=== PATIENT | female | born 1945 | race Caucasian/White ===

== ENCOUNTER → 2017-12-31 | Outpatient (CLI) | payer OTHER, BC | END | disposition home or self-care (01) | DX: Z01.818 Encounter for other preprocedural examination (principal); M17.11 Unilateral primary osteoarthritis, right knee; R26.2 Difficulty in walking, not elsewhere classified; M25.561 Pain in right knee; M25.661 Stiffness of right knee, not elsewhere classified; M62.81 Muscle weakness (generalized); Z74.1 Need for assistance with personal care | CPT/HCPCS: 97161 GP; 97165 GO; 97530 GP; 97535 GO; G8978 GP; G8979 GP; G8980 GP; G8987 GO; G8988 GO; G8989 GO ==

== ENCOUNTER 2018-01-12 22:06 | Inpatient (IN) | payer BC, OTHER ==
[~2018-01-12] VITALS: Ht 160 cm; Wt 115.2 kg
[~2018-01-12 22:06] MED LIST: CALCIUM 500 MG1 EACH PO; COZAAR25 MG PO; DITROPAN XL10 MG PO; LO-DOSE ASPIRIN81 M2 PO; LOTRONEX1 MG PO; MACRODANTIN50 M1 PO; MAGNESIUM250 MG PO; PRILOSEC20 MG PO; TENORMIN100 MG PO; VITAMIN B122500 MCG PO; VITAMIN C100 MG PO; ZOCOR20 MG PO
[2018-01-13 11:52] VITALS: BP 133/100
[2018-01-13 16:57] LABS: HEMATOCRIT 37.5 % (36.0-46.0); HEMOGLOBIN 12.6 G/DL (11.9-15.5); MCH 32.3 PG (29.0-34.0); MCHC 33.6 G/DL (30.0-36.0); MCV 96.2 FL (83-99); PLATELET COUNT 252 K/uL (156-360); RBC DIS.WIDTH-CV 12.5 % (11.8-14.6); RBC DIS.WIDTH-SD 44.2 % (39-53)
[2018-01-13 20:36] VITALS: BP 180/84
[2018-01-14 00:13] VITALS: BP 176/78
[2018-01-14 03:46] VITALS: BP 167/77
[2018-01-14 06:42] LABS: HEMATOCRIT 33.7 % (36.0-46.0); HEMOGLOBIN 11.6 G/DL (11.9-15.5); MCV 94.4 FL (83-99)
[2018-01-14 07:30] LABS: CHLORIDE 101 MEQ/L (99-109); CREATININE 0.6 MG/DL (0.6-1.3); GFR ESTIMATE (CALCULATED) > 59 mL/min/; GLUCOSE 132 mg/dL (70-99); POTASSIUM 4.2 MEQ/L (3.7-5.4); SODIUM 136 MEQ/L (136-147); UREA NITROGEN (BUN) 11 mg/dL (9-23)
[2018-01-14] MEDS ORDERED: LOVENOX40 MG/0.4 SC (08:23)
[2018-01-14] MEDS ORDERED: OXYCODONE HCL5 MG PO (08:23)
[2018-01-14 08:32] VITALS: BP 164/72
[2018-01-14 16:02] VITALS: BP 159/70
[2018-01-15] VITALS: BP 178/77
[2018-01-15 06:20] LABS: HEMATOCRIT 30.9 % (36.0-46.0); HEMOGLOBIN 10.6 G/DL (11.9-15.5); MCV 93.1 FL (83-99)
[2018-01-15 07:43] VITALS: BP 178/72
[2018-01-15 08:59] VITALS: BP 106/60
== END 2018-01-15 15:07 | disposition home or self-care (01) | DRG 467 ==
LOC: CANRESERV 22:06 → ENRESERV 22:06 → CANRESERV 01-13 06:43 → ENRESERV 01-13 06:43 → 2SOUTH 01-13 10:41 → 3EAST 01-13 10:43 → 2SOUTH 01-13 10:43 → ENRESERV 01-13 16:50 → 3EAST 01-13 20:23
PROVIDERS: Orthopaedic Surgery
DX: T84.032A Mechanical loosening of internal right knee prosthetic joint, initial encounter (principal); Z68.41 Body mass index [BMI] 40.0-44.9, adult; I10 Essential (primary) hypertension; K21.9 Gastro-esophageal reflux disease without esophagitis; E66.01 Morbid (severe) obesity due to excess calories; E78.00 Pure hypercholesterolemia, unspecified; Z96.652 Presence of left artificial knee joint; Y79.2 Prosthetic and other implants, materials and accessory orthopedic devices associated with adverse incidents; Z90.710 Acquired absence of both cervix and uterus
CPT/HCPCS: 73560; 80048; 85014; 85018; 85027; C1713; C1776; J0690; J1100; J1170; J1650; J2250; J2405; J2795; J3010; J7050